=== PATIENT | female | born 1990 | race Caucasian/White ===

== ENCOUNTER 2016-12-13 14:50 | Emergency (ER) | payer MEDICAID, OTHER ==
[~2016-12-13] VITALS: Ht 160 cm; Wt 59.0 kg
[~2016-12-13 14:50] MED LIST: IBUP-1542 PO
[2016-12-13 14:52] VITALS: Ht 160 cm; Wt 59.0 kg
[2016-12-13] MEDS ORDERED: ACETAMINOPHEN 325 MG TAB PO STA (15:16)
[2016-12-13] MEDS ORDERED: ONDANSETRON 4 MG INJ IV STA (15:16)
[2016-12-13] MEDS ORDERED: SOD CHLORIDE 0.9% 1,000 ML IV STA (15:16)
--- NOTE | 2016-12-13 15:39 | ERD ---
ER Documentation Chief Complaint Date/Time DATE: 12/13/16 TIME: 15:34 Chief Complaint epigastric pain x 3 days , 5 weeks preg HPI This is a 26-year-old female, A1, presenting to emergency department with epigastric pain 3 days. Patient states epigastric pain feels like pressure. No burning pain or sensation. Patient states pain does not radiate. Patient has had severe nausea with no vomiting. No diarrhea. Patient has intermittent mild lower abdominal cramping. No vaginal bleeding or vaginal discharge. Patient states she had a positive test at home and has not had a OB ultrasound done. 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 ROS All systems reviewed and are negative except as per history of present illness. Medications Home Meds Active Scripts Acetaminophen* (Tylenol*) 325 Mg Tablet, 1 TAB PO Q6 Y for PAIN AND OR ELEVATED TEMP, #20 TAB Prov:RADHA KOCH NP 12/13/16 Ondansetron Hcl* (Zofran*) 4 Mg Tablet, 4 MG PO Q6H for NAUSEA AND/OR VOMITING, #10 TAB Prov:RADHA KOCH NP 12/13/16 Famotidine* (Pepcid*) 20 Mg Tablet, 20 MG PO BID for 4 Days, TAB Prov:RADHA KOCH NP 12/13/16 Ibuprofen* (Motrin*) 600 Mg Tab, 600 MG PO Q6, #30 TAB Prov:VELASQUEZ RAMOS 12/15/15 Allergies Allergies: Coded Allergies: No Known Allergy (Unverified , 12/15/15) PMhx/Soc Medical and Surgical Hx: pt denies Medical Hx, pt denies Surgical Hx Hx Alcohol Use: No Hx Substance Use: No Hx Tobacco Use: No Smoking Status: Never smoker Physical Exam Vitals Vital Signs Date Time Temp Pulse Resp B/P Pulse Ox O2 Delivery O2 Flow Rate FiO2 12/13/16 14:52 98.0 79 18 111/63 97 Physical Exam Const: No acute distress, alert Head: Atraumatic Eyes: Normal Conjunctiva ENT: Normal External Ears, Nose and Mouth. Neck: Full range of motion..~ No meningismus. Resp: Clear to auscultation bilaterally Cardio: Regular rate and rhythm, no murmurs Abd: Soft, non tender, non distended. Normal bowel sounds Skin: No petechiae or rashes Back: No midline or flank tenderness Ext: No cyanosis, or edema Neur: Awake and alert Psych: Normal Mood and Affect Result Diagram: 12/13/16 1545 12/13/16 1545 Results 24 hrs Laboratory Tests Test 12/13/16 15:30 12/13/16 15:45 Urine Color STRAW Urine Clarity SLIGHTLY CLOUDY Urine pH 5.0 Urine Specific [place] 1.004 Urine Ketones NEGATIVEmg/dL Urine Nitrite NEGATIVEmg/dL Urine Bilirubin NEGATIVEmg/dL Urine Urobilinogen NEGATIVEmg/dL Urine Leukocyte Esterase NEGATIVELeu/ul Urine Microscopic RBC 1/HPF Urine Microscopic WBC 0/HPF Urine Squamous Epithelial Cells FEW/HPF Urine Hemoglobin NEGATIVEmg/dL Urine Glucose NEGATIVEmg/dL Urine Total Protein NEGATIVEmg/dl White Blood Count 17.510^3/ul Red Blood Count 4.4010^6/ul Hemoglobin 14.0g/dl Hematocrit 40.1% Mean Corpuscular Volume 91.1fl Mean Corpuscular Hemoglobin 31.8pg Mean Corpuscular Hemoglobin Concent 34.9g/dl Red Cell Distribution Width 12.5% Platelet Count 02805^3/UL Mean Platelet Volume 10.5fl Neutrophils % 78.4% Lymphocytes % 14.6% Monocytes % 5.4% Eosinophils % 0.7% Basophils % 0.5% Nucleated Red Blood Cells % 0.0/100WBC Neutrophils # 13.710^3/ul Lymphocytes # 2.610^3/ul Monocytes # 0.910^3/ul Eosinophils # 0.110^3/ul Basophils # 0.110^3/ul Nucleated Red Blood Cells # 0.010^3/ul Sodium Level 134mmol/L Potassium Level 3.7mmol/L Chloride Level 101mmol/L Carbon Dioxide Level 23mmol/L Anion Gap 14 Blood Urea Nitrogen 7mg/dl Creatinine 0.68mg/dl Glucose Level 102mg/dl Calcium Level 10.2mg/dl Total Bilirubin 0.3mg/dl Direct Bilirubin 0.00mg/dl Indirect Bilirubin 0.3mg/dl Aspartate Amino Transf (AST/SGOT) 20IU/L Alanine Aminotransferase (ALT/SGPT) 27IU/L Alkaline Phosphatase 60IU/L Total Protein 8.3g/dl Albumin 5.0g/dl Globulin 3.30g/dl Albumin/Globulin Ratio 1.51 Beta HCG, Quantitative 02072.0mIU/ml Current Medications Medications (Trade) Dose Ordered Sig/Alyssa Route PRN Reason Start Time Stop Time Status Last Admin Dose Admin Sodium Chloride (NS) 1,000 ml @ 1,000 mls/hr Q1H STAT IV 12/13/16 15:16 12/13/16 16:15 DC 12/13/16 16:49 Acetaminophen (Tylenol Tab) 650 mg ONCE STAT PO 12/13/16 15:16 12/13/16 15:19 DC 12/13/16 16:47 Ondansetron HCl (Zofran Inj) 4 mg ONCE STAT IV 12/13/16 15:16 12/13/16 15:19 DC 12/13/16 16:47 Famotidine (Pepcid) 20 mg ONCE ONCE PO 12/13/16 19:30 12/13/16 19:31 DC 12/13/16 19:15 Procedures/[place] [id number] Radiology Main Line: [phone] DIAGNOSTIC IMAGING REPORT Patient: KEIKO HAM : 1990 Age: 26 Sex: F MR #: [id number] DOS: 12/13/16 [facility] Ordering MD: RADHA KOCH NP Location: [facility] Room/Bed: PROCEDURE: US Abdomen. CLINICAL INDICATION: abdominal pain TECHNIQUE: Multiple real-time images were acquired of the patient's right upper quadrant abdomen and retroperitoneum utilizing a high resolution transducer. COMPARISON: None FINDINGS: The liver demonstrates normal echogenicity. The liver is normal in size and no focal solid lesions are seen. The liver measures 14.2 cm in length. The portal vein is patent with normal direction of flow. No intrahepatic biliary dilatation is seen. No gallstones are identified within the gallbladder. There is no pericholecystic fluid or gallbladder wall thickening. The common bile duct measures 4 mm in maximal dimension. The visualized portions of the pancreas are unremarkable. The tail of the pancreas is not seen. No free fluid is identified. The right kidney is normal in size, and demonstrate normal echogenicity and cortical thickness. The right kidney measures 11.2 cm in long dimension. There is no evidence of hydronephrosis. There are no kidney stones. RPTAT: AA IMPRESSION: Unremarkable right upper quadrant abdominal ultrasound. [place] [address] Radiology Main Line: [phone] DIAGNOSTIC IMAGING REPORT Patient: KEIKO HAM : 1990 Age: 26 Sex: F MR #: [id number] DOS: 12/13/16 1516 Ordering MD: RADHA KOCH NP Location: [facility] Room/Bed: PROCEDURE: OBSTETRICAL ULTRASOUND WITH ENDOVAGINAL IMAGES CLINICAL INDICATION: Vaginal Bleed () TECHNIQUE: Multiple sonographic images of the pelvis were obtained utilizing a transabdominal and endovaginal technique. The images were reviewed on a PACS workstation. COMPARISON: None. LMP: 10/25/2016 FINDINGS: There is a single intrauterine with mean sac diameter of 1.86 cm, yolk sac, and crown-rump length of 0.57 cm which is consistent with a gestational age of 6 weeks, 4 days . The estimated date of delivery by ultrasound is 08/04/2017. The estimated gestational age by LMP is 7 weeks, 0 days . The estimated date of delivery by LMP is 08/01/2017 . No heart tones are detected. Bilateral ovaries are not visualized. There are no abnormal adnexal masses. There is mild pelvic free fluid. IMPRESSION: A single intrauterine gestation is identified with crown-rump length of 0.57 cm which would be consistent with a gestational age of 6 weeks, 4 days. No heart tones are detected. Findings are likely due to a viable early intrauterine although early demise is not entirely excluded. Short-term follow-up ultrasound and serial Beta HCG measurements are recommended for further evaluation. Bilateral ovaries are not visualized. There are no abnormal adnexal masses. MDM: This is a 26-year-old female presenting to the emergency department with epigastric pain 3 days. Patient rates pain 6/10 and states pain feels like a constant pressure. Patient has had severe nausea with no vomiting. No vaginal bleeding or vaginal discharge. Labs ordered an IV access obtained. OB ultrasound reviewed by radiologist as single intrauterine gestation is identified with crown-rump length of 0.57 cm which would be consistent with a gestational age of 6 weeks, 4 days. No heart tones are detected. Findings are likely due to a viable early intrauterine although early demise is not entirely excluded. Gallbladder ultrasound reviewed by radiologist as unremarkable. Labs show elevated WBC of 17.5 with no other indication of severe infection. Normal liver enzymes. Normal glucose. Urine is negative for infection. Differential diagnosis includes but not limited to early demise, normal , peptic ulcer disease, GERD, cholecystitis, cholelithiasis, gastritis and gastroparesis and functional dyspepsia. I doubt acute NH due to patient's normal vital signs, patient denies chest pain , shortness of breath, difficulty breathing or heart palpitations. I doubt pancreatitis due to patient's normal lab results. Patient is appropriate for outpatient management and instructed to follow-up in ER in 2 days for reassessment. Return to ED for any high fever, chest pain, difficulty breathing, shortness breath, wheezing, vomiting, diarrhea, abdominal pain or any new or worsening symptoms. Patient verbalizes understanding. All questions answered at discharge. Kiswahili translation used during this encounter. Departure Diagnosis: Primary Impression: Epigastric pain Condition: RADHA Callejas NP Dec 13, 2016 15:39
[2016-12-13 15:56] LABS: ADD SCAN DIFF NO
[2016-12-13 15:58] LABS: BASOPHIL # 0.1 10^3/ul (0.0-0.1); BASOPHILS % 0.5 % (0.0-2.0); EOSINOPHILS # 0.1 10^3/ul (0.0-0.5); EOSINOPHILS % 0.7 % (0.0-7.0); HEMATOCRIT 40.1 % (37.0-47.0); LYMPHOCYTES # 2.6 10^3/ul (0.8-2.9); LYMPHOCYTES % 14.6 % (15.0-51.0); MEAN CORPUSCULAR HEMOGLOBIN 31.8 pg (29.0-33.0); MEAN CORPUSCULAR HGB CONC 34.9 g/dl (32.0-37.0); MEAN CORPUSCULAR VOLUME 91.1 fl (82.0-101.0); MEAN PLATELET VOLUME 10.5 fl (7.4-10.4); MONOCYTE # 0.9 10^3/ul (0.3-0.9); MONOCYTES % 5.4 % (0.0-11.0); NEUTROPHIL # 13.7 10^3/ul (1.6-7.5); NEUTROPHILS % 78.4 % (39.0-77.0); PLATELET COUNT 357 10^3/UL (140-415); RED CELL DISTRIBUTION WIDTH 12.5 % (11.5-14.5); WHITE BLOOD COUNT 17.5 10^3/ul (4.8-10.8)
[2016-12-13 16:20] LABS: ALBUMIN/GLOBULIN RATIO 1.51; BILIRUBIN,INDIRECT 0.3 mg/dl (0-1.1); BILIRUBIN,TOTAL 0.3 mg/dl (0.2-1.3); CALCIUM 10.2 mg/dl (8.4-10.2); CREATININE 0.68 mg/dl (0.44-1.00); POTASSIUM 3.7 mmol/L (3.5-5.1); TOTAL PROTEIN 8.3 g/dl (6.1-8.1)
--- NOTE | 2016-12-13 16:21 | RADRPT ---
PROCEDURE: US Abdomen. CLINICAL INDICATION: abdominal pain TECHNIQUE: Multiple real-time images were acquired of the patient's right upper quadrant abdomen a nd retroperitoneum utilizing a high resolution transducer. COMPARISON: None FINDINGS: The liver demonstrates normal echogenicity. The liver is normal in size and no focal solid lesions are seen. The liver measures 14.2 cm in length. The portal vein is patent with normal direction of f low. No intrahepatic biliary dilatation is seen. No gallstones are identified within the gallbladder. There is no pericholecystic fluid or gallbladd er wall thickening. The common bile duct measures 4 mm in maximal dimension. The visualized portions of the pancreas are unremarkable. The tail of the pancreas is not seen. No free fluid is identified. The right kidney is normal in size, and demonstrate normal echogenicity and cortical thickness. The right kidney measures 11.2 cm in long dimension. There is no evidence of hydronephrosis. There are no kidney stones. RPTAT: AA IMPRESSION: Unremarkable right upper quadrant abdominal ultrasound. .Red Gates MD, Date Time Electronically viewed and signed by .Red Gates MD, MD on 12/13/2016 16:20 .S/
--- NOTE | 2016-12-13 16:43 | RADRPT ---
PROCEDURE: OBSTETRICAL ULTRASOUND WITH ENDOVAGINAL IMAGES CLINICAL INDICATION: Vaginal Bleed () TECHNIQUE: Multiple sonographic images of the pelvis were obtained utilizing a transabdominal and endovaginal technique. The images were reviewed on a PACS workstation. COMPARISON: None. LMP: 10/25/2016 FINDINGS: There is a single intrauterine with mean sac diameter of 1.86 cm, yolk sac, and crown-rump length of 0.57 cm which is consistent with a gestational age of 6 weeks, 4 days . The estimated date of delivery by ultrasound is 08/04/2017. The estimated gestational age by LMP is 7 weeks, 0 days . The estimated date of delivery by LMP is 08/01/2017 . No heart tones are detected. Bilateral ovaries are not visualized. There are no abnormal adnexal masses. There is mild pelvic free fluid. IMPRESSION: A single intrauterine gestation is identified with crown-rump length of 0.57 cm which would be consi stent with a gestational age of 6 weeks, 4 days. No heart tones are detected. Findings are l ikely due to a viable early intrauterine although early demise is not entirely exclu ded. Short-term follow-up ultrasound and serial Beta HCG measurements are recommended for further e valuation. Bilateral ovaries are not visualized. There are no abnormal adnexal masses. RPTAT: EE Physician Robinson Date Time Electronically viewed and signed by Physician Robinson on 12/13/2016 16:43 /
[2016-12-13 17:45] LABS: ADD UMIC NO; UR ASCORBIC ACID NEGATIVE (NEGATIVE); UR BILIRUBIN (Dip) NEGATIVE (NEGATIVE); UR BLOOD (Dip) NEGATIVE (NEGATIVE); UR CLARITY SLIGHTLY CLOUDY (CLEAR); UR COLOR STRAW (YELLOW); UR GLUCOSE (Dip) NEGATIVE (NEGATIVE); UR KETONES (Dip) NEGATIVE (NEGATIVE); UR LEUKOCYTE ESTERASE (Dip) NEGATIVE Leu/ul (NEGATIVE); UR NITRITE (Dip) NEGATIVE (NEGATIVE); UR RBC 1 /HPF (0-5); UR SPECIFIC GRAVITY (Dip) 1.004 (1.003-1.030); UR SQUAMOUS EPITHELIAL CELL FEW /HPF (FEW); UR TOTAL PROTEIN (Dip) NEGATIVE (NEGATIVE); UR UROBILINOGEN (Dip) NEGATIVE (NEGATIVE)
[2016-12-13] MEDS ORDERED: FAMO-96 PO (19:07)
[2016-12-13] MEDS ORDERED: ACET325T33 PO (19:08)
[2016-12-13] MEDS ORDERED: ONDA4TAB8 PO (19:08)
[2016-12-13] MEDS ORDERED: FAMOTIDINE 20 MG TAB PO ONE (19:30)
== END 2016-12-13 19:34 | disposition home or self-care (01) ==
LOC: FTE 14:50
DX: O26.891 Other specified pregnancy related conditions, first trimester (principal); R10.13 Epigastric pain; Z3A.01 Less than 8 weeks gestation of pregnancy
CPT/HCPCS: 76705; 76801; 76817; 80053; 81001; 84702; 85025; 86900; 86901; J2405; J7030; Z7610; 36415; 81003; 96374